=== PATIENT | female | born 1990 | race Caucasian/White ===

== ENCOUNTER 2020-05-03 18:54 | Inpatient (IN) ==
[2020-05-03] MEDS ORDERED: RINGER'S SOLUTION,LACTATED 1,000 ML IV ONE (18:57)
[2020-05-03] MEDS ORDERED: OXYTOCIN/0.9 % SODIUM CHLORIDE 30 UNITS/500 ML BAG IV ONE (18:57)
[2020-05-03] MEDS ORDERED: DEXTROSE 5%-LACTATED RINGERS 1,000 ML IV PRN (18:57)
[2020-05-03] MEDS ORDERED: ONDANSETRON 4 MG TAB.RAPDIS PO PRN (18:57)
[2020-05-03] MEDS: MISOPROSTOL 100 MCG TABLET VG PRN ×2 (19:32→23:37)
[2020-05-04] MEDS ORDERED: ACETAMINOPHEN 500 MG TABLET PO ONE (04:50)
[2020-05-04] MEDS ORDERED: BUTORPHANOL TARTRATE 2 MG/ML VIAL IV ONE (04:51)
--- NOTE | 2020-05-04 09:15 | HP ---
Chief Complaint - Chief Complaint Date of Service: 05/04/20 Time of Service: 08:35 Chief Complaint: induction of labor History of Present Illness: 29 yo admitted at 39w5d for elective induction of labor for LGA . This complicated by anemia, anxiety/depression, morbid obesity, and LGA. Rh positive Rubella immune GBS negative Medical History (Last Reviewed 05/04/20 @ 09:07 by Godfrey Rick DO) Palpitations (Acute) likely due to anxiety and panic attacks - check labs. Sleep difficulties (Acute) due to depression - recommended nightly sleep routine and good sleep habits. Myalgia (Acute) likely due to anxiety and depression - check labs. Depression (Resolved) Onset Date: ~2017 Anxiety (Chronic) Onset Date: ~2017 Anemia affecting Onset Date: 02/13/20 Allergy to cats Onset Date: Unknown Swelling Allergy to pollens Onset Date: Unknown Body piercing Onset Date: Unknown Dysmenorrhea Onset Date: Unknown At age 15 Heart murmur Onset Date: Unknown As a small child; has had past syncopal episodes with sports participation. Tattoos Onset Date: Unknown Wears glasses Onset Date: Unknown Bonny vaginitis Onset Date: 10/31/16 Surgical History: Surgical History (Last Reviewed 05/03/20 @ 19:29 by Evelina Jaffe RN) [place] teeth removed Onset Date: ~07/2008 Family History: Family History (Last Reviewed 05/03/20 @ 19:29 by Evelina Jaffe RN) Grandfather Arthritis Cancer Mother Arthritis Endometriosis Gout Father Not Known Social History: (Last Reviewed 05/03/20 @ 19:29 by Evelina Jaffe RN) Social History: mcfp: No Marital status: Single lives independently: Yes household members: none number of children: 0 current occupational status: employed 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 current occupational exposures/hazards: No Highest level of school completed/degree received: some college, no degree Sexually Active: Yes Service: No Tobacco: Smoking Status: Former smoker tobacco type: cigarettes Smoking cigarettes per day: 2 Alcohol: alcohol intake: current alcohol intake frequency: a few times a month details: none with Substance Use: substance use type: does not use Dietary Habits: caffeine: No Exercise: Physical activity type: none Review Of Systems (GEN) - Review of Systems Generalized/Overall Review: Present: No Symptoms Reported EENTM: Present: No Symptoms Reported Respiratory: Present: No Symptoms Reported Cardiac: Present: No Symptoms Reported Abdominal: Present: No Symptoms Reported Genitourinary: Present: No Symptoms Reported Musculoskeletal: Present: No Symptoms Reported Neurological: Present: No Symptoms Reported Skin: Present: No Symptoms Reported Endocrine: Present: No Symptoms Reported Allergies/Adverse Reactions: Allergies Allergy/AdvReac Type Severity Reaction Status Date / Time No Known Allergies Allergy Verified 05/03/20 19:06 Home Medications: HOME MEDICATIONS Acetaminophen [Tylenol] 500 mg PO Q8H PRN 02/03/20 [Last Taken 02/03/20 03:30] Vits96/Iron Fum/Folic [ S] 1 tab PO DAILY 02/03/20 [Last Taken Unknown] Exam - Exam Vital Signs: Vital Signs - Last Taken Temp 37.0 C 05/03/20 19:18 Pulse 88 05/03/20 19:18 Resp 18 05/03/20 19:18 BP 144/83 H 05/03/20 19:18 Pulse Ox 98 05/03/20 19:18 Constitutional: Present: Alert, Oriented x3, Cooperative, Mild distress - anxious upon arrival to L&D ENT Exam: Present: hearing grossly normal. Absent: nasal drainage Neck: Present: non-tender Respiratory: Present: lungs clear, no respiratory distress Cardiovascular/Chest: Present: normal peripheral pulses, regular rate, rhythm, edema Abdomen: Present: soft, nontender, no rebound tenderness, other - Gravid /Rectal: Present: Other - Cervix - cl/th/high Extremity: Present: no calf tenderness, lower extremity edema - pitting to knee 2+ Skin Exam: Present: normal color, warm/dry, no cyanosis Lymphatic: Present: no adenopathy Neurologic: Present: alert, normal mood/affect, oriented x 3 Appearance: Present: appropriate appearance, appropriate insight Eye contact: Present: cooperative, good eye contact Thoughts: Present: normal thought pattern, normal mood /affect Diagnostic Studies: Laboratory Results Blood Type O Positive 05/03/20 19:59 Antibody Screen Negative 05/03/20 19:59 Assessment/Plan - Assessment/Plan (1) Encounter for elective induction of labor Assessment: Admit for Cytotec induction of labor. Epidural and pitocin PRN. The r/b/a were thoroughly discussed with patient prior to admission and reviewed again today. All questions answered. Patient desires to continue with IOL. Problem: Acute (2) Morbid obesity with BMI of 40.0-44.9, adult Problem: Chronic (3) LGA (large for gestational age) fetus Problem: Acute (4) Anemia Problem: Chronic Qualifiers: Anemia type: iron deficiency Iron deficiency anemia type: inadequate dietary iron intake Qualified Code(s): D50.8 - Other iron deficiency anemias (5) Anxiety Problem: Chronic (6) Depression Problem: Inactive Qualifiers: Depression Type: unspecified Qualified Code(s): F32.9 - Major depressive disorder, single episode, unspecified
--- NOTE | 2020-05-04 09:17 | PN ---
Progess Note - Interim Date: 05/04/20 Time: 08:50 Narrative: 05/04/20 09:15 Patient rating her contractions as 2-3 out of 10, earlier this morning they were 8 out of 10. Vital signs stable. First blood pressure was elevated upon admission due to anxiety. The remaining blood pressures were all within normal limits until patient began having severe pain. Now that her pain is decreased her blood pressures are back to normal. FHT: 135 baseline, reassuring contractions q 2-3 min Cervix: Fingertip/30/-3 Impression: Intrauterine at 39-6/7 weeks induction of labor-status post 2 doses of Cytotec. Plan: We will give patient regular diet, shower, and allow her to ambulate until contractions spaced out or become more severe. Continue with intermittent monitoring until patient is an active labor.
[2020-05-04] MEDS ORDERED: MISOPROSTOL 100 MCG TABLET VG ONE (13:49)
--- NOTE | 2020-05-04 19:08 | PN ---
Progess Note - Interim Date: 05/04/20 Time: 19:04 Narrative: 05/04/20 19:04 Patient eating her contractions 4 out of 10 Vital signs stable. Status post 225 mcg doses of Cytotec and 112.5 mcg dose of Cytotec FHT: 135 baseline, reassuring contractions q 2-6 min Cervix: Fingertip/30/-3 Impression: Intrauterine at 39-6/7 weeks induction of labor Plan: Continue present plan
[2020-05-04] MEDS: MISOPROSTOL 100 MCG TABLET VG PRN (20:11)
--- NOTE | 2020-05-05 09:05 | PN ---
Progess Note - Interim Date: 05/05/20 Time: 08:58 Narrative: 05/05/20 08:58 Patient states her contractions are mild and in the back. She denies headache, visual changes, or epigastric pain. Patient has been having intermittent mildly elevated blood pressures. Pitocin at 2 mu/min. FHT: 135 baseline, reassuring contractions q 4-5 min Cervix: 1/50/-4 Lower extremities with 2+ pitting edema to knees, no calf tenderness. Impression: 1.Intrauterine at 40 weeks induction of labor for LGA baby with slow progress. Discussed options with patient including 1. going home and waiting for labor to occur on her own or reach 41 weeks. 2. continue with induction. 3. Consider primary section if not delivered by a certain given time. Patient desires to continue with induction for now. 2. Elevated blood pressures. Plan: We will reassess in 3 hours. If no cervical change will place Richards bulb catheter and give patient epidural. Will check CBC, CMP, protein creatinine ratio to rule out preeclampsia.
[2020-05-05 09:25] LABS: Hematocrit 30.8 % (37.0-47.0); Hemoglobin 9.5 gm/dL (12.5-16.0); Mean Cell Volume 85.6 fl (78-100); Mean Corpuscular Hemoglobin 26.4 pg (27-31); Mean Corpuscular Hgb Conc 30.8 g/dl (32-36); Mean Platelet Volume 11.7 fl (8-12.5); Neutrophil # 6.9 K/mm3 (1.3-6.0); Neutrophil % 72.9 % (42-75.0); Platelet Count 241 K/mm3 (150-450); Red Cell Distribution Width 14.9 % (11.5-14.0); White Blood Count 9.5 K/mm3 (4.0-10.5)
[2020-05-05 09:37] LABS: Albumin * 2.4 gm/dl (3.4-5.0); Anion Gap 13.7 mmol/L (6.8-13.8); BUN/Creatinine Ratio 9.6 (9.0-21.6); Bilirubin, Total 0.8 mg/dL (0.0-1.1); Ca. Corrected For Albumin 9.3 mg/dL (8.4-10.2); Calcium * 8.3 mg/dL (7.9-10.9); Carbon Dioxide 21.4 mmol/L (24-32.6); Potassium 3.1 mmol/L (3.4-4.6)
[2020-05-05 10:48] LABS: Random Urine Total Protein 25.4 mg/dL (0-12)
[2020-05-05] MEDS ORDERED: POTASSIUM CHLORIDE 20 MEQ TABLET.SA PO ONE (11:35)
[2020-05-05] MEDS ORDERED: ONDANSETRON HCL/PF 2 MG/ML VIAL IV PRN (13:06)
[2020-05-05] MEDS ORDERED: NALOXONE HCL 1 MG/1 ML SYRG IV PRN (13:06)
--- NOTE | 2020-05-05 13:11 | ANES ---
Anesthesia Pre Procedure Eval Vitals/Labs: Last Vital Signs Temp 37.0 C 05/03/20 19:18 Pulse 88 05/03/20 19:18 Resp 18 05/03/20 19:18 BP 144/83 H 05/03/20 19:18 Pulse Ox 98 05/03/20 19:18 HOME MEDICATIONS Acetaminophen [Tylenol] 500 mg PO Q8H PRN 02/03/20 [Last Taken 02/03/20 03:30] Vits96/Iron Fum/Folic [ S] 1 tab PO DAILY 02/03/20 [Last Taken Unknown] Allergies/Adverse Reactions: Allergies Allergy/AdvReac Type Severity Reaction Status Date / Time No Known Allergies Allergy Verified 05/03/20 19:06 - Planned Procedure Planned Procedure: Elective Induction 05/03 at 07:00 PM Medication List Reviewed:: Yes Allergies Verified: Yes Medical History (Last Reviewed 05/05/20 @ 13:09 by Gennaro Cruz CRNA) Palpitations (Acute) likely due to anxiety and panic attacks - check labs. Sleep difficulties (Acute) due to depression - recommended nightly sleep routine and good sleep habits. Myalgia (Acute) likely due to anxiety and depression - check labs. Depression (Inactive) Onset Date: ~2017 Anxiety (Chronic) Onset Date: ~2017 Anemia affecting Onset Date: 02/13/20 Allergy to cats Onset Date: Unknown Swelling Allergy to pollens Onset Date: Unknown Body piercing Onset Date: Unknown Dysmenorrhea Onset Date: Unknown At age 15 Heart murmur Onset Date: Unknown As a small child; has had past syncopal episodes with sports participation. Tattoos Onset Date: Unknown Wears glasses Onset Date: Unknown Bonny vaginitis Onset Date: 10/31/16 Surgical History (Last Reviewed 05/05/20 @ 13:09 by Gennaro Cruz CRNA) [place] teeth removed Onset Date: ~07/2008 Family History (Last Reviewed 05/05/20 @ 13:09 by Gennaro Cruz CRNA) Grandfather Arthritis Cancer Mother Arthritis Endometriosis Gout Father Not Known - Family Anesthesia History Family History:: no untoward family reactions to anesthesia, no familial bleeding tendencies, no family history of clotting disorders, no family history of premature - Airway/Neck/Teeth Within Normal Limits:: Yes Teeth Condition: intact Neck Exam: full range of motion Mallampatti Score: 2 Thyromental (T-M) distance: > 6 cm Mandibulo Hyoid distance: > 3 cm - Respiratory Respiratory Physical: lungs clear Sleep Apnea currently treated: No Sleep Apnea by current assessment: No - Cardiovascular Cardiac History: arrhythmia Tolerate Activity: Fair Heart Sounds: S1 & S2, Regular - Gastrointestinal NPO since: 0 - Anesthesia Assessment and Plan ASA Class: PS, II, E Anesthesia Type Plan: Epidural - CSE for labor analgesia
[2020-05-05] MEDS ORDERED: fentaNYL CITRATE/PF 50 MCG/ML AMPUL IT SCH (13:15)
--- NOTE | 2020-05-05 13:40 | ANES ---
Anesthesia Procedure Note Procedure Note: ANESTHESIA PROCEDURE NOTE Date of Procedure: 05/05/2020 Time of procedure: 1315. Performed by: CARMEN Anglin CRNA, MSN Credit Union Teller: Myrna Garcia RN. Preprocedure diagnosis: Active labor, labor pain. Post procedure diagnosis: Same. Procedure:Epidural for labor analgesia L3-4. Indications: Labor pain. Findings: See below. Details of the procedure: The patient was placed on the side of the bed in sitting positionand prepped with DuraPrep then draped in a sterile fashion. Lidocaine 1% was infiltrated to the skin and subcutaneous tissues at the level of the L3-4 interspace. An 18-gauge Touhy needle was used to approach the epidural space with loss of resistance technique. Once loss of resistance was achieved a 27-gauge spinal needle was passed through the epidural needle and CSF was contacted. After CSF returned, 20 mcg of fentanyl was injected in the spinal needle was removed the epidural catheter was then threaded approximately 4 cm in the epidural needle was removed. The catheter was taped in place and after careful aspiration 3 mL of 1.5% lidocaine with 1-200,000 epinephrine was injected without change in maternal heart rate or sensorium. . EBL: Minimal. Fluids: N/A. Specimen: N/A. Post procedure condition: The patient tolerated the procedure well with good relief. No complications were noted. Thank you for this consultation. Gennaro Cruz CRNA, CARMEN, MSN
--- NOTE | 2020-05-05 13:41 | ANES ---
Post Anesthesia Discharge - Transfer of Care Transfer of Care handoff given to nurse: Yes - Discharge from PACU Discharge from PACU when meets criteria: Yes - Comfortable post CSE
[2020-05-05] MEDS: BUPIVACAINE HCL/0.9 % NACL/PF 250 ML EP PRN (13:44)
--- NOTE | 2020-05-05 14:21 | PN ---
Progess Note - Interim Date: 05/05/20 Time: 14:19 Narrative: 05/05/20 14:19 Patient comfortable with epidural Vital signs stable. Pitocin at 8 mu/min. FHT: 150 baseline, reassuring contractions q 2-3 min Cervix: 1-2/50/-3, AROM-clear Impression: Intrauterine at 40 weeks induction of labor. Preeclamptic labs within normal limits, blood pressures back to normal. Plan: Continue present plan
--- NOTE | 2020-05-05 14:53 | ANES ---
Post Anesthesia Assessment - Vital Signs Vitals: Last Vital Signs Temp 37.0 C 05/03/20 19:18 Pulse 88 05/03/20 19:18 Resp 18 05/03/20 19:18 BP 144/83 H 05/03/20 19:18 Pulse Ox 98 05/03/20 19:18 Airway Patency: Normal - Mental Status Level Of Consciousness: Awake, Alert, Appropriate - Pain Level Pain Score: 0 - N/V Assessment Nausea/Vomiting Presence: None Dehydration:: No
--- NOTE | 2020-05-05 18:31 | PN ---
Progess Note - Interim Date: 05/05/20 Time: 18:30 Narrative: 05/05/20 18:30 Patient comfortable with epidural Vital signs stable. Pitocin at 14 mu/min. FHT: 135 baseline, reassuring contractions q 2-3 min Cervix: 2/70/-2 Impression: Intrauterine at 40 weeks induction of labor progressing slowly Plan: Continue present plan
[2020-05-06] MEDS: BUPIVACAINE HCL/0.9 % NACL/PF 250 ML EP PRN (03:40)
[2020-05-06] MEDS ORDERED: ceFAZolin SODIUM 1 GM VIAL IV PRN (06:00)
[2020-05-06] MEDS ORDERED: AZITHROMYCIN 500 MG in DEXTROSE 5 % IN WATER 250 ML IV PRN ×2 (06:00)
[2020-05-06] MEDS ORDERED: Oxytocin/Ringers Lactate 20 UNITS/1,000 ML BAG IV ONE (07:19)
[2020-05-06] MEDS ORDERED: RINGER'S SOLUTION,LACTATED 1,000 ML IV PRN (07:19)
--- NOTE | 2020-05-06 07:47 | PN ---
Progess Note - Interim Date: 05/06/20 Time: 07:37 Narrative: 05/06/20 07:37 Patient comfortable with epidural Vital signs stable. Pitocin at 20 mu/min. 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 Plan: The risk/benefits/alternatives to primary low transverse section discussed with patient. We will proceed with section. Because of low hemoglobin will get a type and screen and prepare for possible need for transfusion. Rapid Covid test ordered.
[2020-05-06] MEDS ORDERED: PHENYLEPHRINE HCL 10 MG/ML AMPUL ONE (09:34)
[2020-05-06] MEDS ORDERED: LIDOCAINE HCL/EPINEPHRINE 20 ML VIAL ONE (09:35)
[2020-05-06] MEDS ORDERED: BISACODYL 10 MG SUPP.RECT RC PRN (10:57)
[2020-05-06] MEDS ORDERED: ONDANSETRON HCL/PF 2 MG/ML VIAL IV PRN (10:57)
[2020-05-06] MEDS ORDERED: SIMETHICONE 80 MG TAB.CHEW PO PRN (10:57)
[2020-05-06] MEDS ORDERED: fentaNYL CITRATE/PF 50 MCG/ML AMPUL ONE (11:04)
[2020-05-06] MEDS ORDERED: ONDANSETRON HCL/PF 2 MG/ML VIAL ONE (11:07)
--- NOTE | 2020-05-06 11:08 | PN ---
Progess Note - Interim Date: 05/06/20 Time: 11:08 History for MU History for MU Definition: * The number of deliveries resulting in a live the patient experienced prior to current hospitalization * The previous delivery of live twins or any live multiple gestation is considered one live event. *If primagravida or nulliparous is documented select zero for the number of previous live births. Live Events: Live Events: 0
--- NOTE | 2020-05-06 11:08 | OR ---
Operative Report - Dictated Report Narrative: Indication: 29-year-old 1 para 0 at 40 1/7 weeks admitted for elective induction of labor due to large gestational age fetus progressed to 2 to 3 cm with no further change in over 12 hours despite adequate labor as documented with an IUPC. The baby developed meconium stained fluid and occasional late decelerations therefore labor induction was ceased and we proceeded with a primary low transverse section. Status: Emergent Pre Operative Diagnosis: 40 1/7-week intrauterine . Arrest of dilation. intolerance to labor. Post Operative Diagnosis: Same. Procedure Preformed: Primary Low Transverse Section Surgeon: Amber Rick DO Amalgamator: OR Staff Anesthesia: Epidural Estimated Blood Loss: 400 mL Urine Output: 200 mL of clear urine Fluids Given: 1700 mL of crystalloid Drains: Anderson to gravity Surgical Complications: None Specimens: Placenta to pathology Findings: Female born in cephalic presentation at 10:00 on 05/06/2020 with Apgars 9 and 9, weighing 3377 g and in cephalic presentation. Normal uterus, tubes, ovaries. Technique: The patient was taken to the operating room and placed in dorsal supine position with a left lateral tilt. After adequate epidural anesthesia, anderson catheter insertion,SCDs placed, and Ancef 2 g and 180 mg of a 250 mg dose of Zithromax (the patient had pain in her arm going up to her neck after 180mg of Zithromax was infused. She had no other reaction. The pain resolved after the infusion stopped.) given preoperatively, the abdominal cavity was entered via a modified Kun-Camara incision. Two rolled laps were placed in the pericolic gutters on either side of the uterus. A transverse incision was made in the lower uterine segment and extended laterally and upwardly with digital traction. Clear fluid was noted upon amniotomy. The was delivered easily. 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 The placenta was allowed to deliver spontaneously. The uterus was cleared of clot and debris. Uterine incision was closed with 0 Vicryl using a running stitch. A second imbricating layer was placed. Excellent hemostasis was noted. Rolled laps were removed from the abdominal cavitiy. The peritoneum was closed with a running 3-0 Monocryl. The same suture was used to approximate the rectus and pyramidalis muscles. The fascia was closed with a running 0 Vicryl. The subcutaneous layer was closed with a running 3-0 Monocryl. The same suture was used to approximate the subdermal layer. The skin was closed with a running 4-0 Monocryl and Dermabond. Sponge, lap, needle, and instrument count were correct x 2. Disposition: The patient was transferred to post anesthesia care unit in good condition
--- NOTE | 2020-05-06 11:13 | ANES ---
Post Anesthesia Discharge - Transfer of Care Transfer of Care handoff given to nurse: Yes - Discharge from PACU Discharge from PACU when meets criteria: Yes
--- NOTE | 2020-05-06 11:27 | ANES ---
Post Anesthesia Assessment - Vital Signs Vitals: Last Vital Signs Temp 36.9 C 05/06/20 11:10 Pulse 96 05/06/20 11:10 Resp 16 05/06/20 11:10 BP 138/80 05/06/20 11:10 Pulse Ox 98 05/06/20 11:10 Airway Patency: Normal - Mental Status Level Of Consciousness: Awake - Pain Level Pain Score: 5 - N/V Assessment Nausea/Vomiting Presence: None Dehydration:: No
[2020-05-06] MEDS: IBUPROFEN 800 MG TABLET PO PRN ×2 (11:42→17:45)
[2020-05-06] MEDS: oxyCODONE HCL/ACETAMINOPHEN 1 TAB TABLET PO PRN ×4 (11:42→21:04)
[2020-05-06] MEDS: ENOXAPARIN SODIUM 40 MG/0.4 ML SYRG SC SCH (18:49)
[2020-05-06] MEDS: DOCUSATE SODIUM 100 MG CAPSULE PO SCH (21:04)
[2020-05-07] MEDS: IBUPROFEN 800 MG TABLET PO PRN ×4 (00:06→19:50)
[2020-05-07] MEDS: oxyCODONE HCL/ACETAMINOPHEN 1 TAB TABLET PO PRN ×5 (00:06→19:51)
--- NOTE | 2020-05-07 08:14 | PN ---
Subjective - Date and Time Seen Date: 05/07/20 Time: 07:50 Objective - Vitals Vitals: Last Vital Signs Temp 36.0 C 05/07/20 04:17 Pulse 78 05/07/20 04:17 Resp 16 05/07/20 04:17 BP 137/89 05/07/20 04:17 Pulse Ox 98 05/07/20 04:17 Patient denies complaints. Tolerating regular diet. Ambulating without difficulty. Pain well controlled. Patient has not had a bowel movement since admission. Lochia wnl. Abdomen - soft, appropriately tender Incision -clean, dry, intact uterus - firm, at umbilicus No calf tenderness. 2+ pitting edema Impression: Post op day #1 s/p primary low transverse section for arrest of dilation and intolerance to labor. Constipation Plan: Continue routine post-operative/ care. We will give stool softeners and laxative [id number], increase activity, and minimize narcotic use Cauti Physician Documentation - Urinary Catheter Management Urethral ([place]) Date of Insertion: 05/05/20 Time of Insertion: 14:30 Date of Removal: 05/06/20 Time of Removal: 22:00 Assessment/Plan - Problems/Diagnosis (1) Status post primary low transverse section Problem: Acute (2) Encounter for elective induction of labor Problem: Resolved (3) Morbid obesity with BMI of 40.0-44.9, adult Problem: Chronic (4) LGA (large for gestational age) fetus Problem: Ruled-out (5) Anemia Problem: Chronic Qualifiers: Anemia type: iron deficiency Iron deficiency anemia type: inadequate dietary iron intake Qualified Code(s): D50.8 - Other iron deficiency anemias (6) Anxiety Problem: Chronic (7) Depression Problem: Inactive Qualifiers: Depression Type: unspecified Qualified Code(s): F32.9 - Major depressive disorder, single episode, unspecified
[2020-05-07] MEDS: PRENATAL VITS96/IRON FUM/FOLIC 1 TAB TABLET PO SCH (08:44)
[2020-05-07] MEDS: DOCUSATE SODIUM 100 MG CAPSULE PO SCH ×3 (08:44→22:10)
[2020-05-07] MEDS: SENNOSIDES 8.6 MG TABLET PO PRN ×2 (08:44→19:50)
[2020-05-07] MEDS: ENOXAPARIN SODIUM 40 MG/0.4 ML SYRG SC SCH (19:52)
[2020-05-08] MEDS: IBUPROFEN 800 MG TABLET PO PRN ×4 (02:13→22:53)
[2020-05-08] MEDS: oxyCODONE HCL/ACETAMINOPHEN 1 TAB TABLET PO PRN ×4 (02:14→22:53)
[2020-05-08] MEDS: PRENATAL VITS96/IRON FUM/FOLIC 1 TAB TABLET PO SCH (08:17)
[2020-05-08] MEDS: DOCUSATE SODIUM 100 MG CAPSULE PO SCH ×2 (08:17→21:03)
--- NOTE | 2020-05-08 10:37 | PN ---
Subjective - Date and Time Seen Date: 05/08/20 Time: 10:35 Objective - Vitals Vitals: Last Vital Signs Temp 36.5 C 05/08/20 07:00 Pulse 88 05/08/20 07:00 Resp 18 05/08/20 07:00 BP 147/83 H 05/08/20 07:00 Pulse Ox 98 05/08/20 07:00 Patient denies complaints. Ambulating well. Tolerating regular diet. Pain well controlled. Lochia wnl. Abdomen - soft, appropriately tender Incision -clean, dry, intact uterus - firm, at umbilicus -2 No calf tenderness. DTR-2/4, no clonus Impression: Post op day #2 s/p primary section. Anxiety-mostly controlled. Occasional elevated blood pressures-asymptomatic, probably anxiety related. Plan: Continue routine post-operative/ care. Monitor closely for signs/symptoms of preeclampsia. Cauti Physician Documentation - Urinary Catheter Management Urethral ([place]) Date of Insertion: 05/05/20 Time of Insertion: 14:30 Date of Removal: 05/06/20 Time of Removal: 22:00 Assessment/Plan - Problems/Diagnosis (1) Status post primary low transverse section Problem: Acute (2) Encounter for elective induction of labor Problem: Resolved (3) Morbid obesity with BMI of 40.0-44.9, adult Problem: Chronic (4) LGA (large for gestational age) fetus Problem: Ruled-out (5) Anemia Problem: Chronic Qualifiers: Anemia type: iron deficiency Iron deficiency anemia type: inadequate di etary iron intake Qualified Code(s): D50.8 - Other iron deficiency anemias (6) Anxiety Problem: Chronic (7) Depression Problem: Inactive Qualifiers: Depression Type: unspecified Qualified Code(s): F32.9 - Major depressive disorder, single episode, unspecified
[2020-05-08] MEDS: ENOXAPARIN SODIUM 40 MG/0.4 ML SYRG SC SCH (19:45)
[2020-05-08] MEDS: SENNOSIDES 8.6 MG TABLET PO PRN (21:03)
[2020-05-09] MEDS: IBUPROFEN 800 MG TABLET PO PRN ×3 (06:40→21:08)
[2020-05-09] MEDS: oxyCODONE HCL/ACETAMINOPHEN 1 TAB TABLET PO PRN ×3 (06:40→21:08)
[2020-05-09] MEDS: PRENATAL VITS96/IRON FUM/FOLIC 1 TAB TABLET PO SCH (10:00)
[2020-05-09] MEDS: DOCUSATE SODIUM 100 MG CAPSULE PO SCH ×2 (10:01→21:08)
--- NOTE | 2020-05-09 11:13 | PN ---
Subjective - Date and Time Seen Date: 05/09/20 Time: 10:50 Objective - Vitals Vitals: Last Vital Signs Temp 36.8 C 05/09/20 10:54 Pulse 89 05/09/20 10:54 Resp 18 05/09/20 10:54 BP 137/65 05/09/20 10:54 Pulse Ox 99 05/09/20 10:54 Patient denies complaints. Ambulating without difficulty. Tolerating regular diet. Pain well controlled. Lochia wnl. Abdomen - soft, appropriately tender Incision -clean, dry, intact uterus - firm, at umbilicus -3 No calf tenderness Impression: Post op day #3 s/p primary section. Baby staying to rule out infection Plan: Routine discharge instructions. Board for baby. Cauti Physician Documentation - Urinary Catheter Management Urethral ([place]) Date of Insertion: 05/05/20 Time of Insertion: 14:30 Date of Removal: 05/06/20 Time of Removal: 22:00 Assessment/Plan - Problems/Diagnosis (1) Status post primary low transverse section Problem: Acute (2) Encounter for elective induction of labor Problem: Resolved (3) Morbid obesity with BMI of 40.0-44.9, adult Problem: Chronic (4) LGA (large for gestational age) fetus Problem: Ruled-out (5) Anemia Problem: Chronic Qualifiers: Anemia type: iron deficiency Iron deficiency anemia type: inadequate dietary iron intake Qualified Code(s): D50.8 - Other iron deficiency anemias (6) Anxiety Problem: Chronic (7) Depression Problem: Inactive Qualifiers: Depression Type: unspecified Qualified Code(s): F32.9 - Major depressive disorder, single episode, unspecified
--- NOTE | 2020-05-09 11:20 | DS ---
OB Discharge Summary (1) Status post primary low transverse section Status: Acute (2) Encounter for elective induction of labor Status: Resolved (3) Morbid obesity with BMI of 40.0-44.9, adult Status: Chronic (4) LGA (large for gestational age) fetus Status: Ruled-out (5) Anemia Status: Chronic Qualifiers: Anemia type: iron deficiency Iron deficiency anemia type: inadequate dietary iron intake Qualified Code(s): D50.8 - Other iron deficiency anemias (6) Anxiety Status: Chronic (7) Depression Status: Inactive Qualifiers: Depression Type: unspecified Qualified Code(s): F32.9 - Major depressive disorder, single episode, unspecified Delivery Date: 05/06/20 Delivery Time: 10:00 :: 2 Para:: 1 Gestational weeks:: 40 Gestational days:: 1 Intrapartum Procedures: Delivered, Primary Section, Delivery- Low Transverse /OP Complications: No Complications Discharge Diagnosis: Term -Delivered, Rubella Immune - Discharge Information Date of Discharge: 05/09/20 Hospital Course: 29-year-old 1 para 0 admitted at 39-5/7 weeks for elective induction of labor. After several doses of Cytotec and Pitocin patient dilated to 2/90/-2 but failed to progress any further despite over 12 hours of monitoring with an anterior uterine pressure catheter. Baby began having meconium stained fluid and occasional late decelerations therefore we proceeded with primary low transverse section which went uneventfully. Postoperative course was uncomplicated. Patient was discharged on postop day #3. Path report showed grade 1/2 chorioamnionitis of the placenta therefore baby was placed on IV antibiotics and awaiting blood cultures. Because blood cultures will not be back until postop day 4, patient was discharged on postop day 3 with board for baby accommodations. Discharge Location: Home Disposition: Home self-care Condition: Good Referrals: Stephenie Florez DO [Primary Care Provider] - Activity on Discharge:: Activity as tolerated, Pelvic Rest, No lifting Discharge Diet: General/regular food Additional Patient Instructions (free text): Devone your follow up appointment is scheduled for MondayMay 19 at 9:[address] Rick. Jose J's follow up appointment is scheduled for MondayMay [address] Hudson. Please arrive at 9:00 a.m. for paperwork. Prescriptions (Any new or edited meds): Ferrous Sulfate 325 mg PO DAILY #60 tab Ibuprofen [Motrin] 200 - 800 mg PO Q6H PRN #100 tab PRN Reason: Pain oxyCODONE HCL/ACETAMINOPHEN [Percocet 5 MG/325 MG] 1 tab PO Q4H PRN #10 tab PRN Reason: Moderate Pain Transmission Status: Received by [facility] #[id number] Complete Home Medications List: Complete Home Medication List: Acetaminophen [Tylenol] 500 mg PO Q8H PRN 02/03/20 Vits96/Iron Fum/Folic [ S] 1 tab PO DAILY 02/03/20 Ferrous Sulfate 325 mg PO DAILY #60 tab 05/07/20 Ibuprofen [Motrin] 200 - 800 mg PO Q6H PRN #100 tab 05/07/20 oxyCODONE HCL/ACETAMINOPHEN [Percocet 5 MG/325 MG] 1 tab PO Q4H PRN #10 tab 05/07/20 - Plan Discharge to:: Home Follow up in office in:: 2 weeks - [place] Information Weight (Grams): 3,377 Infant Sex: Female Score 1 min: 9 Score 5 min: 9 Complications: Meconium, Other - Possible infection, on antibiotics
[2020-05-09] MEDS ORDERED: MICONAZOLE NITRATE VG SCH (16:00)
[2020-05-09] MEDS ORDERED: FLUCONAZOLE 150 MG TABLET PO ONE (16:45)
[2020-05-09] MEDS: ENOXAPARIN SODIUM 40 MG/0.4 ML SYRG SC SCH (18:48)
[2020-05-09 19:00] VITALS: BP 140/89
== END 2020-05-09 23:31 | disposition home or self-care (01) | DRG 788 ==
LOC: OB 18:54
PROVIDERS: ADMIT Obstetrics & Gynecology; ATTEND Obstetrics & Gynecology